=== PATIENT | female | born 1975 | race Caucasian/White ===

== ENCOUNTER 2017-12-21 11:53 | Emergency (ER) | payer SELFPAY ==
[2017-12-21] MEDS ORDERED: Ketorolac 30 MG/ML SDV IVPUSH ONE (12:13)
[2017-12-21] MEDS ORDERED: HYDROmorphone 1 MG/ML Syringe IVPUSH ONE (12:13)
--- NOTE | 2017-12-21 12:25 | EDM.PDOC ---
ED HPI GENERAL MEDICAL PROBLEM - General Chief Complaint: Back Pain or Injury Stated Complaint: Low back pain Time Seen by Provider: 12/21/17 12:13 Source of Information: Reports: Patient History Limitations: Reports: No Limitations - History of Present Illness INITIAL COMMENTS - FREE TEXT/NARRATIVE: Patient is a 42-year-old female who presents to the emergency department this afternoon with a complaint of low back pain. Patient states yesterday morning she coughed and heard something pop in her back and has had back pain, progressively worsening since yesterday. Pain is now radiating down right lower extremity anterior to knee. Patient admits to manual labor for work however denies other trauma, history of back pain, saddle anesthesia, urinary or bladder incontinence, abdominal pain, chest pain, fever, or shortness of breath. Onset: Sudden Onset Date: 12/20/17 Quality: Reports: Sharp Severity: Moderate Improves with: Reports: None Worsens with: Reports: Movement Context: Reports: Other (Patient initiated with coughing) Associated Symptoms: Reports: No Other Symptoms - Related Data Allergies Allergy/AdvReac Type Severity Reaction Status Date / Time No Known Drug Allergies Allergy Cannot Verified 12/21/17 12:29 Remember Home Meds: Home Meds Methocarbamol [Robaxin] 500 mg PO Q6HR #20 tablet 12/21/17 [Rx] Naproxen 375 mg PO BID #60 tablet. 12/21/17 [Rx] ED ROS GENERAL - Review of Systems Review Of Systems: ROS reveals no pertinent complaints other than HPI. Constitutional: Reports: No Symptoms HEENT: Reports: No Symptoms Respiratory: Reports: No Symptoms Cardiovascular: Reports: No Symptoms Endocrine: Reports: No Symptoms GI/Abdominal: Reports: No Symptoms : Reports: No Symptoms Musculoskeletal: Reports: No Symptoms Skin: Reports: No Symptoms Neurological: Reports: No Symptoms Psychiatric: Reports: No Symptoms Hematologic/Lymphatic: Reports: No Symptoms Immunologic: Reports: No Symptoms ED EXAM,LOWER BACK PAIN/INJURY - Physical Exam Exam: See Below Exam Limited By: No Limitations General Appearance: Alert, WD/WN, Moderate Distress Throat/Mouth: Normal Inspection, Normal Oropharynx, No Airway Compromise Head: Atraumatic, Normocephalic Neck: Normal Inspection, Supple, Non-Tender, Full Range of Motion Respiratory/Chest: No Respiratory Distress, Lungs Clear, Normal Breath Sounds, No Accessory Muscle Use, Chest Non-Tender Cardiovascular: Regular Rate, Rhythm, No Murmur GI/Abdominal: Normal Bowel Sounds, Soft, Non-Tender, No Organomegaly, No Distention, No Abnormal Bruit, No Mass Back Exam: Decreased Range of Motion, Paraspinal Tenderness. No: CVA Tenderness (L), CVA Tenderness (R), Vertebral Tenderness Extremities: Normal Inspection, Normal Range of Motion, No Pedal Edema, Normal Capillary Refill Neurological: Alert, Normal Mood/Affect, Normal Dorsiflexion, Normal Plantar Flexion, No Motor/Sensory Deficits, Oriented x 3. No: Abnormal Sensation Psychiatric: Anxious Skin Exam: Warm, Dry, Intact, Normal Color, No Rash Lymphatic: No Adenopathy Course - Orders/Labs/Meds Orders: Active Orders 24 hr Category Date Time Status Peripheral IV Care [RC] . DIRECTED Care 12/21/17 12:13 Ordered Lumbar Spine wo Cont [CT] Stat Exams 12/21/17 12:14 Ordered HYDROmorphone [Dilaudid] Med 12/21/17 12:13 Once 1 mg IVPUSH ONETIME ONE Ketorolac [Toradol] Med 12/21/17 12:13 Once 30 mg IVPUSH ONETIME ONE Sodium Chloride 0.9% [Syrex Flush] Med 12/21/17 12:13 Ordered 5 ml FLUSH Q8HR PRN Peripheral IV Insertion Adult [OM.PC] Routine Oth 12/21/17 12:13 Ordered - Radiology Interpretation Free Text/Narrative:: CT lumbar spine shows no acute abnormality. - Re-Assessments/Exams Free Text/Narrative Re-Assessment/Exam: 12/21/17 13:34 Patient afebrile, nontoxic appearing, vital signs stable, pain mostly relieved. Patient able to ambulate. Patient will follow-up with PCP Departure - Departure Time of Disposition: 13:35 Disposition: Home, Self-Care 01 Condition: Good Clinical Impression: Lumbago with sciatica, right side Qualifiers: Chronicity: acute Back pain laterality: right Qualified Code(s): M54.41 - Lumbago with sciatica, right side - Discharge Information Instructions: Back Injury Prevention, [id number], Back Exercises, Easy-to- Read, Sciatica, [id number], Back Pain, Adult, [id number] Referrals: PCP,None [Primary Care Provider] - [place]-Kennedi Merchant MD [Physician] - Forms: ED Department Discharge Additional Instructions: Follow-up with Dr. Ashford next 2-3 days. Return to the emergency department sooner if symptoms continue or worsen. - My Orders Last 24 Hours: My Active Orders 12/21/17 12:13 Peripheral IV Care [RC] . DIRECTED HYDROmorphone [Dilaudid] 1 mg IVPUSH ONETIME ONE Ketorolac [Toradol] 30 mg IVPUSH ONETIME ONE Sodium Chloride 0.9% [Syrex Flush] 5 ml FLUSH Q8HR PRN Peripheral IV Insertion Adult [OM.PC] Routine 12/21/17 12:14 Lumbar Spine wo Cont [CT] Stat - Assessment/Plan Last 24 Hours: My Active Orders 12/21/17 12:13 Peripheral IV Care [RC] . DIRECTED HYDROmorphone [Dilaudid] 1 mg IVPUSH ONETIME ONE Ketorolac [Toradol] 30 mg IVPUSH ONETIME ONE Sodium Chloride 0.9% [Syrex Flush] 5 ml FLUSH Q8HR PRN Peripheral IV Insertion Adult [OM.PC] Routine 12/21/17 12:14 Lumbar Spine wo Cont [CT] Stat Assessment:: Low back pain Plan: Follow-up with PCP
[2017-12-21] MEDS ORDERED: Ondansetron 4 MG/2 ML SDV IVPUSH ONE (12:26)
[2017-12-21] MEDS: Sodium Chloride 0.9% 5 ML Syringe FLUSH PRN ×4 (13:21→13:24)
== END 2017-12-21 13:50 | disposition home or self-care (01) ==
LOC: KA.ED 11:53
DX: M54.41 Lumbago with sciatica, right side (principal)
CPT/HCPCS: 72131; 96374; 96375; 99283; J1170; J1885; J2405